=== PATIENT | female | born 1960 ===

== ENCOUNTER → 2018-04-24 | Outpatient (CLI) | payer BC | LOC: ZCOL.LAB 15:43 | DX: Z01.812 Encounter for preprocedural laboratory examination (principal); Z86.14 Personal history of Methicillin resistant Staphylococcus aureus infection ==

== ENCOUNTER → 2018-06-01 | Outpatient (CLI) | payer BC | LOC: ZCOL.LAB 16:21 | DX: Z86.14 Personal history of Methicillin resistant Staphylococcus aureus infection (principal) ==